=== PATIENT | male | born 1990 | race Caucasian/White ===

== ENCOUNTER 2017-07-22 17:22 | Emergency (ER) | payer MEDICAID, OTHER ==
[2017-07-22] MEDS: ACETAMINOPHEN 500 MG TAB PO (18:01)
== END 2017-07-22 18:00 | disposition home or self-care (01) ==
LOC: FTE 17:22
DX: J02.9 Acute pharyngitis, unspecified (principal)
CPT/HCPCS: 99283; Z7502

== ENCOUNTER 2017-11-20 11:48 | Emergency (ER) | payer MEDICAID ==
[2017-11-20] MEDS: IBUPROFEN 600 MG TAB PO (13:28)
[2017-11-20 14:42] LABS: MONOTEST Negative (NEG)
== END 2017-11-20 14:50 | disposition home or self-care (01) ==
LOC: FTE 11:48
DX: J02.9 Acute pharyngitis, unspecified (principal); F17.210 Nicotine dependence, cigarettes, uncomplicated
CPT/HCPCS: 36415; 86308; 87880; 99283